=== PATIENT | female | born 1950 | race Caucasian/White ===

== ENCOUNTER 2024-08-30 19:49 | Inpatient (IN) | payer OTHER ==
[2024-08-30 20:49] LABS: Absolute Lymphocytes (CBC) 0.3 K/uL (0.7-4.9); Absolute Monocytes 0.5 K/uL (0.1-1.3); Absolute Neutrophil 1.3 K/uL (1.8-8.0); Basophils % 0.4 % (0-1.3); Hematocrit 33.3 % (36.0-45.0); Hemoglobin 11.6 g/dL (12.0-15.0); Lymphocytes % 14.4 % (15.3-44.8); MCH 33.4 pg (27.0-35.0); MCHC 34.8 g/dL (32.0-36.0); Monocytes % 22.3 % (3.3-12.3); Neutrophils % 62.9 % (41.7-73.7); Nucleated Red Blood Cells % 0.2 % (0-0); Platelets 96 thou/uL (152-406); RBC Red Blood Cell Count 3.47 M/uL (3.86-4.86)
[2024-08-30 20:54] LABS: PT Prothrombin Time 15.6 SECONDS (10-13.0); PTT, Activated Partial Thromb 27.7 SECONDS (27.2-37.4); Protime INR 1.39
[2024-08-30] MEDS ORDERED: ACETAMINOPHEN 325 MG TABLET ONE (20:56)
[2024-08-30] MEDS ORDERED: ASPIRIN 81 MG CHEWABLE TABLET ONE (20:56)
[2024-08-30] MEDS ORDERED: ONDANSETRON 4 MG/2 ML VIAL ONE (20:56)
[2024-08-30] MEDS ORDERED: HYDROMORPHONE HCL 0.5 MG/0.5 ML INJ ONE ×2 (20:56→23:24)
[2024-08-30] MEDS ORDERED: VANCOMYCIN 1 GM/VIAL ONE (20:56)
[2024-08-30] MEDS ORDERED: NA CHLORIDE 0.9% 250 ML ONE (20:57)
[2024-08-30] MEDS ORDERED: NA CHLORIDE 0.9% 500 ML ONE (20:57)
[2024-08-30] MEDS ORDERED: CEFEPIME 2 GM VIAL ONE (20:57)
[2024-08-30] MEDS ORDERED: FAMOTIDINE 20 MG/2 ML VIAL IV ONE (20:57)
[2024-08-30] MEDS ORDERED: NA CHLORIDE 0.9% 100 ML ONE (20:57)
[2024-08-30] MEDS ORDERED: NA CHLORIDE 0.9% 1,000 ML ONE (20:58)
[2024-08-30 21:02] LABS: AST/SGOT 12 U/L (15-37); Albumin 2.3 g/dL (3.4-5.0); Albumin/Globulin Ratio 0.5 (1.1-1.8); Alkaline Phosphatase 125 U/L (45-117); Bilirubin Direct 0.2 mg/dL (0-0.2); Bilirubin Indirect, Calculated 0.2 mg/dL (0.2-0.8); Bilirubin Total 0.4 mg/dL (0.2-1.0); Globulin 4.2 g/dL (2.3-3.5); Magnesium 1.5 mg/dL (1.6-2.4); NT PRO-BNP 596 pg/mL (<125); Protein, Total 6.5 g/dL (6.4-8.2)
--- NOTE | 2024-08-30 21:02 | RAD REPORT ---
EXAMINATION: Head Brain Wo Cont CLINICAL INDICATION: Female, 74 years old.MENTAL STATUS CHANGE TECHNIQUE: Axial CT images from the skull base to the vertex without intravenous contrast. Coronal an d sagittal reformatted images were created from the data set. One or more of the following dose reduction techniques were used: Automated exposure control, adjustment of the mA and/or kV according to patient size, and/or iterative reconstruction. Unless otherwise specified, incidental findings do not require dedicated imaging follow-up. [id number]. COMPARISON: No prior exam. FINDINGS: INTRACRANIAL: No acute intracranial hemorrhage. No hydrocephalus. No mass effect or midline shift. Mi ld chronic small vessel ischemic changes.Mild cerebral atrophy. VASCULATURE: No visualized abnormalities in the arteries or dural venous sinuses. SCALP/SKULL: No calvarial fracture identified. No acute soft tissue abnormality. SINUSES: The visualized paranasal sinuses are mostly clear. No significant mastoid fluid. IMPRESSION: No acute intracranial abnormality.
[2024-08-30 21:03] LABS: Anion Gap 10.5 mEq/L (5.0-15.0); Potassium 3.5 mEq/L (3.5-5.1); Troponin High Sensitivity 5.6 pg/mL (<58.9)
[2024-08-30 21:07] LABS: ALT/SGPT < 14 U/L (13-56)
--- NOTE | 2024-08-30 21:14 | RAD REPORT ---
EXAM: Chest Abd Pelvis Wo Con CLINICAL INDICATION: Female, 74 years old Abdominal distention;Cough TECHNIQUE: CT chest, abdomen and pelvis was performed, without IV contrast, as per department protoco l. Axial, sagittal and coronal reconstructions were obtained. One or more of the following dose reduction techniques were used: Automated exposure control, adjustment of the mA and/or kV according to the patient size, and/or iterative reconstruction. Unless otherwise specified, incidental findings do not require dedicated imaging follow-up. [id number]. COMPARISON: No prior exam. FINDINGS: The lack of intravenous contrast limits the sensitivity of this exam for evaluation of solid visceral organs, vascular structures, and retroperitoneum. ---THORAX--- LOWER NECK AND CHEST WALL: Right upper chest wall Port-A-Cath. LUNGS AND AIRWAYS: Emphysema.No dominant or clearly suspicious nodule identified. PLEURA: No pleural effusion. No pneumothorax. MEDIASTINUM AND LYMPH NODES: No mediastinal mass or fluid collection. Normal size mediastinal, hilar, and axillary lymph nodes. Diffuse esophageal wall thickening. THORACIC AORTA: No thoracic aortic aneurysm. Atherosclerotic changes are present. PULMONARY ARTERIES: Caliber is within normal limits. Unable to evaluate for pulmonary emboli due to e ither protocol or lack of contrast. HEART: Normal heart size. Moderate coronary artery calcifications.No significant pericardial effusion . ---ABDOMEN/PELVIS--- UPPER GI: No significant abnormality. LIVER: Pneumobilia. No focal mass within the limitations of noncontrast CT. GALLBLADDER/BILE DUCTS: Common bile duct stent.? PANCREAS: No mass, ductal dilation, or nasir-pancreatic fluid. SPLEEN: Unremarkable. ADRENALS: No adrenal masses. KIDNEYS AND URETERS: No hydronephrosis.Limited evaluation for renal lesions in the absence of IV cont rast.Nonobstructing renal calculi.No ureteral calculi. ABDOMINAL AORTA AND OTHER VESSELS: Moderate atherosclerotic changes without aortic aneurysm. PERITONEUM: No abnormal free fluid. No free air. LYMPH NODES: No pathologic lymphadenopathy. ABDOMINAL WALL: Unremarkable SMALL BOWEL/COLON: Small bowel has normal course and caliber. No colonic wall thickening or pericolon ic inflammatory changes.Normal appendix. URINARY BLADDER: Underdistended but grossly unremarkable. REPRODUCTIVE ORGANS: No pathologic process. ---COMBINED--- MUSCULOSKELETAL: Multilevel degenerative changes in the spine. No acute fracture. ADDITIONAL FINDINGS: None. IMPRESSION: No acute findings within the chest, abdomen, or pelvis. Evaluation of the abdomen and pelvis limited due to lack of IV contrast and lack of intra-abdominal fat. Incidental findings as noted above,
--- NOTE | 2024-08-30 21:15 | RAD REPORT ---
EXAM: Chest Single View HISTORY: 74 years Female COUGH COMPARISON: None. FINDINGS: LUNGS/PLEURA: The lungs are clear. No pleural effusions or pneumothorax. No pulmonary edema. CARDIAC/MEDIASTINUM: The cardiac silhouette is within normal limits. UPPER ABDOMEN: No significant abnormality. BONES: No acute abnormality. LINES/TUBES/OTHER: Right IJ approach Port-A-Cath. IMPRESSION: No evidence of acute cardiopulmonary disease.
[2024-08-30 21:17] LABS: Lipase 13 U/L (13-75)
[2024-08-30 21:37] LABS: Influenza A Ag Negative; Influenza B Ag Negative; SARS-CoV-2 Antigen Rapid Res Negative (Negative)
[2024-08-30] MEDS ORDERED: IBUPROFEN 200 MG TAB PO ONE (21:49)
[2024-08-30] MEDS ORDERED: IBUPROFEN 400 MG TAB ONE (21:49)
[2024-08-30 21:58] LABS: Band Neutrophils 20 % (0-1); Differential Total Cells Count 100; Lymphocytes 18 % (15-42); Monocytes 6 % (0-10); Reactive Lymphocytes 11 %; Segmented Neutrophils 45 % (40-80)
[2024-08-30 21:59] LABS: Blood Morphology Comment NOTED (NOT SEEN); Platelet Estimate DECR
[2024-08-30 22:23] LABS: Specific Gravity 1.013 (1.005-1.030); Sqamous Epithelial None Seen /HPF (None Seen); Urine Bacteria 20-50 /HPF (<20); Urine Bilirubin NEGATIVE (Negative); Urine Blood 1+ (Negative); Urine Clarity Extremely Turbid (Clear); Urine Color Yellow (Yellow); Urine Crystals Unidentified Few /HPF (None Seen); Urine Glucose NEGATIVE (Negative); Urine Ketones 1+ (Negative); Urine Micro Reflex YN NO BILL MICROSCOPIC; Urine Mucus Slight /HPF (None Seen); Urine Nitrite 2+ (Negative); Urine Protein 1+ (Negative); Urine RBC <5 /HPF (None Seen); Urine Urobilinogen Normal (Normal); Urine WBC >50 /HPF (<5); Urine WBC Clump Rare /HPF (None Seen)
--- NOTE | 2024-08-30 22:55 | EDPHYS ---
Physician Documentation [facility] Name: Heide Carty Age: 74 yrs Sex: Female : 1950 Arrival Date: 08/30/2024 Time: 19:49 Bed 6 Private MD: ED Physician Kartik Gilliam HPI: 08/30 20:05 This 74 yrs old Female presents to ER via EMS with complaints of Altered sp4 Mental Status. 20:28 74-year-old female presents with EMS for acute generalized weakness associated with sp4 fever reported some symptoms of a stroke including a right sided weakness.. 23:15 Patient has history of stage I pancreatic cancer that is being managed at [facility]. Last chemotherapy with gemcitabine on Wednesday08/23/2024. Last WBC count 4.8 on 08/23/2024. Patient's home medications include oxycodone 5 mg p.o. as needed pain, Protonix 20 mg daily, atorvastatin 40 mg daily, Zofran 4 mg as needed nausea, hydroxyzine 25 mg as needed anxiety, trazodone 50 mg as needed bedtime. Patient has developed acute generalized weakness at 5 PM today there was some concern for the stroke and right-sided weakness. NIH scale on presentation is 0.. - Immunization history:: Adult Immunizations up to date. - Infectious Disease History:: Denies. - Social history:: Smoking status: unknown. - Family history:: not pertinent. ROS: 23:16 Constitutional: Positive fever, positive generalized weakness, positive altered mental sp4 status, 23:16 All other systems are negative, Exam: 23:21 Constitutional: Patient is frail cachectic appearing female, acutely febrile 103.1 sp4 generalized weakness, no focal deficits. Able to state her name and date of . Head/Face: Normocephalic, atraumatic. Eyes: Pupils equal round and reactive to light, extra-ocular motions intact. Lids and lashes normal. Conjunctiva and sclera are not injected. Cornea within normal limits. Periorbital areas with no swelling, redness, or edema. ENT: Nares patent. No nasal discharge, no septal abnormalities noted. Tympanic membranes are normal and external auditory canals are clear. Oropharynx with no redness, swelling, or masses, exudates, or evidence of obstruction, uvula midline. Mucous membranes moist. Neck: Trachea midline, no thyromegaly or masses palpated, and no cervical lymphadenopathy. Supple, full range of motion without nuchal rigidity, or vertebral point tenderness. Chest/axilla: Normal chest wall appearance and motion. Nontender with no deformity. No lesions are appreciated. Cardiovascular: Regular rate and rhythm with a normal S1 and S2. No gallops, murmurs, or rubs. Normal PMI, no JVD. No pulse deficits. Respiratory: Lungs have equal breath sounds bilaterally, clear to auscultation and percussion. No rales, rhonchi or wheezes noted. No increased work of breathing, no retractions or nasal flaring. Abdomen/GI: Soft, with normal bowel sounds. No distension or tympany. No guarding or rebound. No evidence of tenderness throughout. Back: No spinal tenderness. No costovertebral tenderness. Skin: Warm, dry with normal turgor. Normal color with no rashes, no lesions, and no evidence of cellulitis. MS/ Extremity: Pulses equal, no cyanosis. Neurovascular intact. Full, normal range of motion. Neuro: Awake and alert, GCS 15, oriented to person, Cranial nerves II-XII grossly intact. Motor strength 5/5 in all extremities. Sensory grossly intact. 23:21 ECG was reviewed by the Attending Physician. EKG 2003 normal sinus rhythm rate 90 otherwise normal EKG. Vital Signs: 19:51 BP 134 / 61; Pulse 90; Resp 18; Temp 100.1(O); Pulse Ox 98% on R/A; Weight 47.17 kg; kd3 21:31 BP 109 / 54; Pulse 81; Resp 18; Pulse Ox 96% on R/A; kd3 23:34 Temp 98.2(O); kd3 05/08 02:03 BP 81 / 42; Pulse 58; Resp 18; Pulse Ox 98% on R/A; kd3 03:16 BP 97 / 52; Pulse 61; Resp 18; Pulse Ox 100% on R/A; kd3 04:07 BP 96 / 54; Pulse 63; Resp 16; Pulse Ox 99% on R/A; kd3 [place] Coma Score: 08/30 23:21 Eye Response: spontaneous(4). Motor Response: obeys commands(6). Verbal Response: sp4 oriented(5). Total: 15. MDM: 19:57 Medical Screening Exam initiated true 22:55 ED course: Sepsis reevaluation completed, septic fluid bolus administered. Patient sp4 stable for admission. Will discuss patient with [facility] at family request. [facility] has declined admission secondary to the fact that sepsis can be managed here. Patient will be admitted here with IV antibiotics and further care pertaining to her acute UTI. 23:25 Differential Diagnosis: CVA, electrolyte abnormality, overdose, pneumonia, seizure, sp4 sepsis, TIA, UTI, volume depletion. Data reviewed: vital signs, nurses notes, EMS record, lab test result(s), EKG, radiologic studies. Consideration of Admission/Observation Patient was admitted/placed on observation. Escalation of care including admission/observation considered. Management of patient was discussed with the following: Hospitalist: Admit Team . 23:33 ED course: EXAM: Chest Abd Pelvis Wo Con CLINICAL INDICATION: Female, 74 years old sp4 Abdominal distention;Cough TECHNIQUE: CT chest, abdomen and pelvis was performed, without IV contrast, as per department protocol. Axial, sagittal and coronal reconstructions were obtained. One or more of the following dose reduction techniques were used: Automated exposure control, adjustment of the mA and/or kV according to the patient size, and/or iterative reconstruction. Unless otherwise specified, incidental findings do not require dedicated imaging follow-up. [id number]. COMPARISON: No prior exam. FINDINGS: The lack of intravenous contrast limits the sensitivity of this exam for evaluation of solid visceral organs, vascular structures, and retroperitoneum. ---THORAX--- LOWER NECK AND CHEST WALL: Right upper chest wall Port-A-Cath. LUNGS AND AIRWAYS: Emphysema.No dominant or clearly suspicious nodule identified. PLEURA: No pleural effusion. No pneumothorax. MEDIASTINUM AND LYMPH NODES: No mediastinal mass or fluid collection. Normal size mediastinal, hilar, and axillary lymph nodes. Diffuse esophageal wall thickening. THORACIC AORTA: No thoracic aortic aneurysm. Atherosclerotic changes are present. PULMONARYARTERIES: Caliber is within normal limits. Unable to evaluate for pulmonary emboli due to either protocol or lack of contrast. HEART: Normal heart size. Moderate coronary artery calcifications.No significant pericardial effusion. ---ABDOMEN/PELVIS--- UPPER GI: No significant abnormality. LIVER: Pneumobilia. No focal mass within the limitations of noncontrast CT. GALLBLADDER/BILE DUCTS: Common bile duct stent.? PANCREAS: No mass, ductal dilation, or nasir-pancreatic fluid. SPLEEN: Unremarkable. ADRENALS: No adrenal masses. KIDNEYS AND URETERS: No hydronephrosis.Limited evaluation for renal lesions in the absence of IV ABDOMINAL AORTA AND OTHER VESSELS: Moderate atherosclerotic changes without aortic aneurysm. PERITONEUM: No abnormal free fluid. No free air. LYMPH NODES: No pathologic lymphadenopathy. ABDOMINAL WALL: Unremarkable SMALL BOWEL/COLON: Small bowel has normal course and caliber. No colonic wall thickening or pericolonic inflammatory changes.Normal appendix. URINARYBLADDER: Underdistended but grossly unremarkable. REPRODUCTIVE ORGANS: No pathologic process. ---COMBINED--- MUSCULOSKELETAL: Multilevel degenerative changes in the spine. No acute fracture. ADDITIONAL FINDINGS: None. IMPRESSION: No acute findings within the chest, abdomen, or pelvis. Evaluation of the abdomen and pelvis limited due to lack of IV contrast and lack of intra-abdominal fat. Incidental findings as noted above, . ED course: EXAMINATION: Head Brain Wo Cont CLINICAL INDICATION: Female, 74 years old.MENTAL STATUS CHANGE TECHNIQUE: Axial CT images from the skull base to the vertex without intravenous contrast. Coronal and sagittal reformatted images were created from the data set. One or more of the following dose reduction techniques were used: Automated exposure control, adjustment of the mA and/or kV according to patient size, and/or iterative reconstruction. Unless otherwise specified, incidental findings do not require dedicated imaging follow-up. [id number]. COMPARISON: No prior exam. FINDINGS: INTRACRANIAL: No acute intracranial hemorrhage. No hydrocephalus. No mass effect or midline shift. Mild chronic small vessel ischemic changes.Mild cerebral atrophy. VASCULATURE: No visualized abnormalities in the arteries or dural venous sinuses. SCALP/SKULL: No calvarial fracture identified. No acute soft tissue abnormality. SINUSES: The visualized paranasal sinuses are mostly clear. No significant mastoid fluid. IMPRESSION: No acute intracranial abnormality. . 08/30 19:58 Order name: Basic Metabolic Panel; Complete Time: 21:47 vc1 08/30 19:58 Order name: CBC with Diff; Complete Time: 22:08 1 08/30 19:58 Order name: High Sensitivity Troponin; Complete Time: 21:47 1 08/30 19:58 Order name: Protime (+inr); Complete Time: 21:03 [facility] 08/30 19:58 Order name: Ptt, Activated; Complete Time: 21:03 [facility] 08/30 19:58 Order name: UA W/ Microscopic; Complete Time: 22:37 [facility] 08/30 20:01 Order name: LFT's; Complete Time: 21:47 [facility] 08/30 20:01 Order name: Magnesium; Complete Time: 21:47 [facility] 08/30 20:01 Order name: NT PRO-BNP; Complete Time: 21:47 [facility] 08/30 20:01 Order name: Blood Culture Adult (2) [facility] 08/30 20:01 Order name: Lactate w/ 2H reflex if indic.; Complete Time: 21:03 [facility] 08/30 20:01 Order name: COVID-19 Ag + Flu A+B Ag; Complete Time: 21:47 [facility] 08/30 20:54 Order name: Manual Differential; Complete Time: 22:08 EDWA 08/30 21:05 Order name: C-Reactive Protein; Complete Time: 21:47 EDWA 08/30 21:14 Order name: Lipase; Complete Time: 21:47 EDMS 08/31 01:15 Order name: Basic Metabolic Panel EDMS 08/31 01:15 Order name: Basic Metabolic Panel EDMS 08/31 01:15 Order name: CBC with Automated Diff EDMS 08/31 01:15 Order name: CBC with Automated Diff EDMS 08/30 20:01 Order name: XRAY Chest (1 view); Complete Time: 21:47 [facility] 08/30 20:01 Order name: CT Head Brain wo Cont; Complete Time: 21:03 [facility] 08/30 20:01 Order name: CT Chest Abdomen Pelvis W/O Contrast; Complete Time: 21:47 [facility] 08/30 19:58 Order name: EKG; Complete Time: 19:59 [facility] 08/31 01:15 Order name: EKG Electrocardiogram EDMS 08/31 01:15 Order name: EKG Electrocardiogram EDMS 08/30 19:58 Order name: Accucheck; Complete Time: 21:30 [facility] 08/30 19:58 Order name: Cardiac monitoring; Complete Time: 20:08 [facility] 08/30 19:58 Order name: EKG - Nurse/Tech; Complete Time: 20:08 [facility] 08/30 19:58 Order name: IV Saline Lock; Complete Time: 20:52 [facility] 08/30 19:58 Order name: Labs collected and sent; Complete Time: 20:52 vc1 08/30 19:58 Order name: NPO; Complete Time: 20:08 vc1 08/30 19:58 Order name: O2 Per Protocol; Complete Time: 20:52 vc1 08/30 19:58 Order name: O2 Sat Monitoring; Complete Time: 20:51 vc1 08/30 19:58 Order name: Stroke Swallow Screen; Complete Time: 21:30 vc1 EC:03 Rate is 90 beats/min. Rhythm is regular, Normal Sinus Rhythm. QRS [place] is Normal. CA sp4 interval is normal. QRS interval is normal. QT interval is normal. No Q waves. T waves are Normal. No ST changes noted. Clinical impression: No evidence of ischemia. Interpreted by me. Reviewed by me. Administered Medications: 20:41 CANCELLED (Physician Discretion): rocephin1 grams IV at per protocol once; Given slow sp4 IV push per pharmacy instructions 21:28 Drug: Cefepime IVPB 2 grams IVPB at 200 ml/hr once over 30 mins; (mix in NS 100 mL) kd3 Route: IVPB; Rate: 200 ml/hr; Infused Over: 30 mins; Site: right upper arm; 21:29 Drug: Aspirin PO Chewable Tablet 324 mg PO once; 81 mg tablets x 4 Route: PO; kd3 21:29 Drug: NS 0.9% IV (30 ml/kg) 30 ml/kg IV at bolus once; Sepsis Protocol; to be given as kd3 a bolus over 90 minutes Route: IV; Rate: bolus; Site: left upper arm; 21:29 Drug: Famotidine IVP 20 mg IVP once; dilute with 10 mL 0.9% NaCl; give over 2 minutes kd3 Route: IVP; Site: right upper arm; 21:29 Drug: Acetaminophen PO 650 mg PO once Route: PO; kd3 21:29 Drug: HYDROmorphone IVP 0.5 mg IVP once Route: IVP; Site: right upper arm; kd3 21:29 Drug: Ondansetron IVP 4 mg IVP once; over 2 minutes Route: IVP; Site: right upper arm; kd3 21:55 Drug: Ibuprofen PO 600 mg PO once Route: PO; kd3 21:56 Drug: vancoMYCIN IVPB 1 grams IVPB once over 2 hrs Route: IVPB; Infused Over: 2 hrs; kd3 Site: right upper arm; 23:26 Drug: HYDROmorphone IVP 0.5 mg IVP once Route: IVP; Site: right upper arm; kd3 08/31 01:58 Drug: NS 0.9% IV 500 ml 500 ml IV at 1 bolus once; to be given as a bolus over 30 kd3 minutes Volume: 500 ml; Route: IV; Rate: 1 bolus; Site: right upper arm; 01:58 Drug: midodrine 2.5 mg PO once Route: PO; kd3 01:59 Drug: Albumin IVPB 25 grams 100 ml IVPB once; (Note: Albumin 25% concentration) Volume: kd3 100 ml; Route: IVPB; Site: right upper arm; 03:15 Drug: Albumin IVPB 25 grams 100 ml IVPB once; (Note: Albumin 25% concentration) Volume: kd3 100 ml; Route: IVPB; Site: right upper arm; 03:15 Drug: NS 0.9% IV 500 ml 500 ml IV at 1 bolus once; to be given as a bolus over 30 kd3 minutes Volume: 500 ml; Route: IV; Rate: 1 bolus; Site: right upper arm; 03:15 Drug: midodrine 2.5 mg PO once Route: PO; kd3 Disposition: 08/30 20:28 Critical Care:. sp4 Disposition Summary: 08/30/24 22:54 Hospitalization Ordered Notes: Hospitalization Status: Inpatient Admission sp4 Provider: Omar Conway Location: Telemetry/[facility] (Inpatient) sp4 Condition: Fair sp4 Problem: new sp4 Symptoms: have improved sp4 Bed/Room Type: Standard sp4 Room Assignment: [facility](08/31/24 02:24) Diagnosis - Severe sepsis without septic shock sp4 - Neutropenia, unspecified sp4 - Pyelonephritis acute sp4 - Neutropenic fever sp4 Forms: - Medication Reconciliation Form sp4 - SBAR form sp4 - Leadership Thank You Letter sp4 Critical care time excluding procedures: 20:28 Critical care time: Bedside Care: 36 minutes, Consultation: 12 minutes, Family sp4 Intervention: 12 minutes. Total time: 60 minutes Signatures: Dispatcher [employer] Esemr Luis RN RN kl Anderson, Corey, MD MD cha Doucette, Kyli, RN RN kd3 Collette Coles RN RN vc1 Kartik Gilliam MD MD sp4 Corrections: (The following items were deleted from the chart) 19:59 19:59 BASIC METABOLIC PANEL+C.LAB.BRZ ordered. EDMS EDMS 19:59 19:59 CBC+H.LAB.BRZ ordered. EDMS EDMS 19:59 19:59 Troponin High Sensitivity+C.LAB.BRZ ordered. EDMS EDMS 19:59 19:59 PROTIME (+INR)+COAG.LAB.BRZ ordered. EDMS EDMS 19:59 19:59 PTT, ACTIVATED+COAG.LAB.BRZ ordered. EDMS EDMS 19:59 19:59 UA W/ Microscopic+U.LAB.BRZ ordered. EDMS EDMS 20:01 20:01 HEPATIC FUNCTION+C.LAB.BRZ ordered. EDMS EDMS 20:01 20:01 MAGNESIUM+C.LAB.BRZ ordered. EDMS EDMS 20:01 20:01 PROBNP+C.LAB.BRZ ordered. EDMS EDMS 20:01 20:01 BLOOD CULTURE*+BA.LAB.BRZ ordered. EDMS EDMS 20:01 20:01 LACTATE+C.LAB.BRZ ordered. EDMS EDMS 20:01 20:01 COVID-19 Ag + Flu A+B Ag+I.LAB.BRZ ordered. EDMS EDMS 20:01 20:01 Chest Single View+RAD.RAD.BRZ ordered. EDMS EDMS 20:02 20:02 Head Brain Wo Cont+CT.RAD.BRZ ordered. EDMS EDMS 20:02 20:02 Chest Abdomen Pelvis Wo Con+CT.RAD.BRZ ordered. EDMS EDMS 20:41 20:01 Rocephin IV 1 grams IV at per protocol once; Given slow IV push per pharmacy sp4 instructions ordered. true 21:04 20:27 C-REACTIVE PROTEIN+C.LAB.BRZ ordered. EDMS EDMS 21:19 21:05 LIPASE+C.LAB.BRZ ordered. EDMS EDMS 08/31 02:24 08/30 22:54 sp4 [address]
--- NOTE | 2024-08-30 22:55 | ER ---
Nurse's Notes [facility] Name: Heide Carty Age: 74 yrs Sex: Female : 1950 Arrival Date: 08/30/2024 Time: 19:49 Bed 6 Private MD: Diagnosis: Severe sepsis without septic shock;Neutropenia, unspecified;Pyelonephritis acute;Neutropenic fever Presentation: 08/30 19:51 Chief complaint: EMS states: Family called for altered mental status that started this kd3 morning around 0300. Pt was weaker than normal and unable to walk on her own. The patient's daughter and grand daughter are at the bedside and report that she seemed to improve throughout the day but then steadily declined starting around 5pm today and is now not responding correctly. pt VSS. Pt is receiving chemo for pancreatic cancer. Coronavirus screen: unknown. Ebola Screen: No symptoms or risks identified at this time. Initial Sepsis Screen: Does the patient meet any 2 criteria? No. Patient's initial sepsis screen is negative. Does the patient have a suspected source of infection? No. Patient's initial sepsis screen is negative. Risk Assessment: Do you want to hurt yourself or someone else? Patient reports no desire to harm self or others. Onset of symptoms was August 30, 2024. 19:51 Method Of Arrival: EMS: [facility] kd3 19:51 Acuity: SOHAM 3 kd3 Triage Assessment: 19:51 General: Appears in no apparent distress. Behavior is calm, quiet. Pain: Denies pain. kd3 Neuro: Level of Consciousness is awake, confused, Oriented to person. - Immunization history:: Adult Immunizations up to date. - Infectious Disease History:: Denies. - Social history:: Smoking status: unknown. - Family history:: not pertinent. Screenin:30 July Swallow Protocol Exclusion Criteria: Exclusion Criteria Result: Proceed Brief kd3 Cognitive Screen What is your name? Normal, Where are you right now? Normal, What year is it? Abnormal Oral Mechanism Examination Oral Mechanism Result: Normal. 3 oz Water Swallow Challenge: Pt able to drink all water without stopping, coughing, choking or throat clearing: Yes Result: PASS Notified: Kartik Gilliam MD. 23:31 [facility] ED Fall Risk Assessment (Adult) History of falling in the last 3 months, kd3 including since admission No falls in past 3 months (0 pts) Confusion or Disorientation No (0 pts) Intoxicated or Sedated No (0 pts) Impaired Gait No (0 pts) Mobility Assist Device Used No (0 pt) Altered Elimination No (0 pt) Score/Fall Risk Level 0 - 2 = Low Risk Oriented to surroundings. Abuse screen: Denies threats or abuse. Denies injuries from another. Nutritional screening: No deficits noted. Tuberculosis screening: No symptoms or risk factors identified. Assessment: 23:30 General: Pt has improved mental status. VSS. Pt is alert and oriented x 4.. Pt has kd3 taken some oral fluids and food.. . Neuro: Level of Consciousness is awake, alert, obeys commands, Oriented to person, place, time, situation. Cardiovascular: Patient's skin is warm and dry. Respiratory: Airway is patent Trachea midline Respiratory effort is even, unlabored, Respiratory pattern is regular, symmetrical. Vital Signs: 19:51 BP 134 / 61; Pulse 90; Resp 18; Temp 100.1(O); Pulse Ox 98% on R/A; Weight 47.17 kg; kd3 21:31 BP 109 / 54; Pulse 81; Resp 18; Pulse Ox 96% on R/A; kd3 23:34 Temp 98.2(O); kd3 05/08 02:03 BP 81 / 42; Pulse 58; Resp 18; Pulse Ox 98% on R/A; kd3 03:16 BP 97 / 52; Pulse 61; Resp 18; Pulse Ox 100% on R/A; kd3 04:07 BP 96 / 54; Pulse 63; Resp 16; Pulse Ox 99% on R/A; kd3 Mimi Coma Score: 08/30 23:21 Eye Response: spontaneous(4). Motor Response: obeys commands(6). Verbal Response: sp4 oriented(5). Total: 15. ED Course: 19:51 Patient arrived in ED. kd3 19:51 Arm band placed on. kd3 19:55 Triage completed. kd3 19:57 Greg Mae MD is Attending Physician. [facility] 20:04 Attending Physician role handed off by Greg Mae MD sp4 20:04 Kartik Gilliam MD is Attending Physician. sp4 20:07 Samira Guerrero, SHAKIRA is Primary Nurse. kd3 20:50 CT Head Brain wo Cont In Process Unspecified. EDMS 20:50 CT Chest Abdomen Pelvis W/O Contrast In Process Unspecified. EDMS 20:51 Ptt, Activated Sent. kd3 20:51 Protime (+inr) Sent. kd3 20:51 High Sensitivity Troponin Sent. kd3 20:51 CBC with Diff Sent. kd3 20:51 Basic Metabolic Panel Sent. kd3 20:52 NT PRO-BNP Sent. kd3 20:52 Magnesium Sent. kd3 20:52 LFT's Sent. kd3 20:52 Lactate w/ 2H reflex if indic. Sent. kd3 20:52 Blood Culture Adult (2) Sent. kd3 21:14 XRAY Chest (1 view) In Process Unspecified. EDMS 21:30 COVID-19 Ag + Flu A+B Ag Sent. kd3 22:04 called MD Mae [phone]. sp 22:54 Omar Conway MD is Hospitalizing Provider. sp4 23:32 Patient has correct armband on for positive identification. kd3 08/31 03:17 No provider procedures requiring assistance completed. Patient admitted, IV remains in kd3 place. 04:07 Provided Education on: admission order . kd3 Administered Medications: 08/30 20:41 CANCELLED (Physician Discretion): rocephin1 grams IV at per protocol once; Given slow sp4 IV push per pharmacy instructions 21:28 Drug: Cefepime IVPB 2 grams IVPB at 200 ml/hr once over 30 mins; (mix in NS 100 mL) kd3 Route: IVPB; Rate: 200 ml/hr; Infused Over: 30 mins; Site: right upper arm; 21:29 Drug: Aspirin PO Chewable Tablet 324 mg PO once; 81 mg tablets x 4 Route: PO; kd3 21:29 Drug: NS 0.9% IV (30 ml/kg) 30 ml/kg IV at bolus once; Sepsis Protocol; to be given as kd3 a bolus over 90 minutes Route: IV; Rate: bolus; Site: left upper arm; 21:29 Drug: Famotidine IVP 20 mg IVP once; dilute with 10 mL 0.9% NaCl; give over 2 minutes kd3 Route: IVP; Site: right upper arm; 21:29 Drug: Acetaminophen PO 650 mg PO once Route: PO; kd3 21:29 Drug: HYDROmorphone IVP 0.5 mg IVP once Route: IVP; Site: right upper arm; kd3 21:29 Drug: Ondansetron IVP 4 mg IVP once; over 2 minutes Route: IVP; Site: right upper arm; kd3 21:55 Drug: Ibuprofen PO 600 mg PO once Route: PO; kd3 21:56 Drug: vancoMYCIN IVPB 1 grams IVPB once over 2 hrs Route: IVPB; Infused Over: 2 hrs; kd3 Site: right upper arm; 23:26 Drug: HYDROmorphone IVP 0.5 mg IVP once Route: IVP; Site: right upper arm; kd3 08 01:58 Drug: NS 0.9% IV 500 ml 500 ml IV at 1 bolus once; to be given as a bolus over 30 kd3 minutes Volume: 500 ml; Route: IV; Rate: 1 bolus; Site: right upper arm; 01:58 Drug: midodrine 2.5 mg PO once Route: PO; kd3 01:59 Drug: Albumin IVPB 25 grams 100 ml IVPB once; (Note: Albumin 25% concentration) Volume: kd3 100 ml; Route: IVPB; Site: right upper arm; 03:15 Drug: Albumin IVPB 25 grams 100 ml IVPB once; (Note: Albumin 25% concentration) Volume: kd3 100 ml; Route: IVPB; Site: right upper arm; 03:15 Drug: NS 0.9% IV 500 ml 500 ml IV at 1 bolus once; to be given as a bolus over 30 kd3 minutes Volume: 500 ml; Route: IV; Rate: 1 bolus; Site: right upper arm; 03:15 Drug: midodrine 2.5 mg PO once Route: PO; kd3 Medication: 08/30 23:34 VIS not applicable for this client. kd3 Outcome: 22:54 Decision to Hospitalize by Provider. sp4 08/31 04:07 Admitted to Med/surg kd3 Condition: stable Discharge instructions given to patient, Instructed on the need for admit, Demonstrated understanding of instructions, 04:08 Patient left the ED. kd3 Signatures: Dispatcher [employer] EDGreg Aguiar MD MD cha Pinkerton, Shawna sp Doucette, Kyli, RN RN kd3 Potepalov, Kartik, MD MD sp4
[2024-08-31] MEDS ORDERED: ONDANSETRON 4 MG/2 ML VIAL IV PRN (01:06)
[2024-08-31] MEDS ORDERED: NA CHLORIDE 0.9% 500 ML ONE ×2 (01:21→03:03)
[2024-08-31] MEDS ORDERED: MIDODRINE HCL 5 MG TABLET ONE ×2 (01:21→03:02)
[2024-08-31] MEDS ORDERED: ALBUMIN HUMAN 25% 100 ML IV ONE (01:22)
[2024-08-31] MEDS ORDERED: ALBUMIN HUMAN 25% 50 ML IV ONE (03:03)
[2024-08-31] MEDS: ALBUMIN HUMAN 25% 50 ML IV ONE (03:08)
[2024-08-31] MEDS: NACHLORIDE 0.45% 1,000 ML IV SCH (05:15)
--- NOTE | 2024-08-31 06:57 | P.HP ---
Certification for Inpatient Patient admitted to: Inpatient With expected LOS: >2 Midnights Patient will require the following post-hospital care: None Practitioner: I am a practitioner with admitting privileges, knowledge of patient current condition, hospital course, and medical plan of care. Services: Services provided to patient in accordance with Admission requirements found in Title 42 Section 412.3 of the Code of Federal Regulations Patient History Date of Service: 08/31/24 Reason for admission: Sepsis due to UTI, generalized body weakness Allergies contrast Allergy (Uncoded 08/31/24 02:31) Itching/Hives/Rash Home medications list reviewed: Yes Home Medications: Atorvastatin Calcium 40 mg PO BEDTIME 08/31/24 Oxycodone HCl 5 mg PO BID* PRN 08/31/24 Pantoprazole [Protonix Tab] 25 mg PO DAILY 08/31/24 - Past Medical/Surgical History Has patient received pneumonia vaccine in the past: Yes Diabetic: No -: Pancreatic stent placement. -: Esophageal surgery. -: Tubal ligation. -: Right chest wall Port-A-Cath. - Family History Family History: Reviewed- Non-Contributory - Social History Smoking Status: Never smoker Smoking therapy provided: No Alcohol use: No CD- Drugs: No Caffeine use: Yes Place of Residence: Home Review of Systems 10-point ROS is otherwise unremarkable General: Fever Gastrointestinal: Nausea, Abdominal Pain Musculoskeletal: Back Pain Neurological: Weakness Physical Examination - Vital Signs Temperature: 97.5 F Blood Pressure: 96/54 Pulse: 63 Respirations: 16 Pulse Ox (%): 100 - Physical Exam General: Alert, Oriented x3, Cooperative HEENT: Atraumatic, Normocephalic, Mucous membr. moist/pink, Sclerae nonicteric Neck: Supple, Without JVD or thyroid abnormality Respiratory: Clear to auscultation bilaterally, Normal air movement Cardiovascular: Normal pulses, Regular rate/rhythm, Normal S1 S2, No gallops, No rubs, No murmurs Capillary refill: <2 Seconds Gastrointestinal: Normal bowel sounds, Tenderness Musculoskeletal: No clubbing, No swelling, No erythema Integumentary: No breakdown, No cyanosis Neurological: Normal speech, Normal tone, Cranial nerves 3-12 intact, Normal affect Lymphatics: No axilla or inguinal lymphadenopathy External genitalia: No lesions Rectal: Normal - Studies Laboratory Data (last 24 hrs) 08/30/24 08/30/24 08/30/24 21:05 20:28 20:28 WBC Hgb Hct Plt Count PT 15.6 H INR 1.39 APTT 27.7 Sodium Potassium BUN Creatinine Glucose Magnesium 1.5 L Total Bilirubin 0.4 AST 12 L ALT < 14 Alkaline Phosphatase 125 H Lipase Cancelled 13 08/30/24 08/30/24 20:28 20:28 WBC 2.00 L Hgb 11.6 L Hct 33.3 L Plt Count 96 L PT INR APTT Sodium 131 L Potassium 3.5 BUN 10 Creatinine 0.82 Glucose 118 H Magnesium Total Bilirubin AST ALT Alkaline Phosphatase Lipase Female Exam - Breasts Breasts: Normal configuration - Female Pelvic Cervix: No discharge Assessment and Plan - Plan Patient is a pleasant 74-year-old female with past medical history of pancreatic cancer that was diagnosed in January/2024 and currently receiving chemotherapy at this time, reports to the ER today brought in by her family due to generalized body weakness, disorientation, with a temp of 103.1. While in ER patient was afebrile, back to her baseline neuro status, alert and oriented x 3, able to communicate appropriately, follows all commands appropriate. Patient workup in the ER shows UTI. Patient denies any associated chest pain, shortness of breath, complaint of abdominal pain secondary to pancreatic cancer. When inquired from the patient if she remember what happened that she was brought to the ER, patient states she does not remember anything. According to report received from ER doctor, he states he tried calling [facility] for patient to be transferred over there since she is receiving chemotherapy, states he was told that patient does not need to be transferred because he has UTI and is not related to her cancer. (1) sepsis due to UTI. -Ceftriaxone 2 g IV daily. -IV 1/2 NS at 75ml/ hr. (2Chronic pancreatic cancer diagnosed January/2024, currently on chemotherapy in [facility]. -Morphine IV as needed every 4 hours. -Zofran 4 mg IV every 6 hours as needed. (3)Explained the entire treatment plan to the patient, solicit questions answered and voiced understanding. Discharge Plan: Home - Advance Directives Does patient have a Living Will: No Does patient have a Durable POA for Healthcare: No - Code Status/Comfort Care Code Status Assessed: Yes Code Status: Full Code
[2024-08-31 07:33] LABS: Anion Gap 9.5 mEq/L (5.0-15.0); Potassium 3.5 mEq/L (3.5-5.1)
[2024-08-31] MEDS: Ringers Lactate 1,000 ML IV ONE (08:16)
[2024-08-31] MEDS: ENOXAPARIN 40 MG/0.4 ML SQ SCH (08:18)
[2024-08-31] MEDS: PANTOPRAZOLE 40MG TABLET PO SCH (08:18)
[2024-08-31] MEDS: OXYCODONE HCL 5 MG TAB PO PRN (08:18)
[2024-08-31] MEDS: CEFTRIAXONE 2,000 MG in NA CHLORIDE 0.9% 100 ML IV SCH (08:19)
[2024-08-31] MEDS: Magnesium Sulfate 2gm IVPB 2 G/50 ML BAG IV ONE (08:19)
[2024-08-31] MEDS ORDERED: OXYCODONE *CR* 20 MG TAB PO SCH ×2 (09:00)
--- NOTE | 2024-08-31 11:39 | EKG ---
Test Date: 2024-08-30 Test Time: 20:03:10 Television [employer] Director: [place] MEASUREMENT RESULTS: Intervals: Rate: 90 NY: 132 QRSD: 64 QT: 348 QTc: 425 [place]: P: 77 [place]: 132 QRS: -14 T: 75 INTERPRETIVE STATEMENTS: Normal sinus rhythm Possible Left atrial enlargement Septal infarct, age undetermined Abnormal ECG No previous ECG available for comparison Electronically Signed On 08-31-24 11:38:30 CDT by Kaushik Maharaj
--- NOTE | 2024-08-31 12:14 | P.PN ---
Subjective Date of Service: 08/31/24 Chief Complaint: Sepsis due to UTI, generalized body weakness Subjective: No chest pain or shortness of breath. No nausea or vomiting. Has chronic abdominal pain from pancreatic cancer, now some pain in the bladder area. No obvious bleeding. Looks comfortable in the bed. Objective: General appearance: Alert and comfortable CVS: Normal S1 and S2 Lungs: Clear to auscultation bilaterally Abdomen: Soft, bowel sounds present, mild tenderness in the epigastric and suprapubic area Extremities: No lower extremity edema Physical Examination - Vital Signs Temperature: 97.5 F Blood Pressure: 106/46 Pulse: 64 Respirations: 18 Pulse Ox (%): 100 - Studies Laboratory Data (last 24 hrs) 08/30/24 08/30/24 08/30/24 21:05 20:28 20:28 WBC Hgb Hct Plt Count PT 15.6 H INR 1.39 APTT 27.7 Sodium Potassium BUN Creatinine Glucose Magnesium 1.5 L Total Bilirubin 0.4 AST 12 L ALT < 14 Alkaline Phosphatase 125 H Lipase Cancelled 13 08/30/24 08/30/24 20:28 20:28 WBC 2.00 L Hgb 11.6 L Hct 33.3 L Plt Count 96 L PT INR APTT Sodium 131 L Potassium 3.5 BUN 10 Creatinine 0.82 Glucose 118 H Magnesium Total Bilirubin AST ALT Alkaline Phosphatase Lipase Assessment And Plan - Plan (1) sepsis due to UTI. -Ceftriaxone IV - blood pressure was soft, given fluid bolus this morning, blood pressure improving after that, continue maintenance IV fluids - Unfortunately urine culture was not sent at admission, will repeat UA and send culture. 2. pancreatic cancer diagnosed January/2024, currently on chemotherapy in [facility]. - Supportive care for now, follow-up with [facility] next week. 3. Pancytopenia: Probably related to underlying cancer and chemotherapy, follow-up with oncology. 4. Hypomagnesemia: Replace and monitor. 5. Emphysema on CT scan: As needed inhalers for now. 6. Esophageal thickening on CT scan: Start PPI, follow-up with PCP. 7. Generalized weakness: Secondary to underlying UTI and pancreatic cancer, CT head negative. Plan discussed with the patient, answered all questions, discussed with nursing staff.
[2024-08-31] MEDS: POTASSIUM CL SA 10 MEQ TAB PO ONE (14:05)
[2024-08-31] MEDS: ACETAMINOPHEN 325 MG TABLET PO PRN (16:42)
[2024-08-31] MEDS: ATORVASTATIN 40 MG TAB PO SCH (19:58)
[2024-08-31] MEDS: ENSURE ENLIVE 237 ML CAN PO SCH (20:00)
[2024-09-01 04:44] LABS: Absolute Lymphocytes (CBC) 0.5 K/uL (0.7-4.9); Absolute Monocytes 0.6 K/uL (0.1-1.3); Absolute Neutrophil 1.8 K/uL (1.8-8.0); Basophils % 0.2 % (0-1.3); Eosinophils % 0.4 % (0-4.4); Hematocrit 27.2 % (36.0-45.0); Hemoglobin 9.4 g/dL (12.0-15.0); MCH 33.1 pg (27.0-35.0); MCHC 34.5 g/dL (32.0-36.0); MCV 95.7 fL (80-100); MPV 9.7 fL (7.6-11.3); Monocytes % 20.5 % (3.3-12.3); Neutrophils % 62.9 % (41.7-73.7); Nucleated Red Blood Cells % 0.4 % (0-0); Platelets 122 thou/uL (152-406); RBC Red Blood Cell Count 2.84 M/uL (3.86-4.86); Red Cell Distribution Width 12.9 % (12.1-15.2)
[2024-09-01 04:45] LABS: Anion Gap 6.6 mEq/L (5.0-15.0); Magnesium 1.9 mg/dL (1.6-2.4); Phosphorus 1.9 mg/dL (2.5-4.9); Potassium 3.6 mEq/L (3.5-5.1)
[2024-09-01] MEDS: POTASSIUM CL SA 10 MEQ TAB PO ONE (08:40)
[2024-09-01] MEDS: Ringers Lactate 1,000 ML IV ONE (08:48)
[2024-09-01] MEDS: Ringers Lactate 1,000 ML IV SCH (08:49)
[2024-09-01] MEDS: PIPER TAZO 3.375 GM in NA CHLORIDE 0.9% 100 ML IV SCH (08:50)
[2024-09-01] MEDS: Magnesium Sulfate 2gm IVPB 2 G/50 ML BAG IV ONE (10:06)
[2024-09-01] MEDS: POTASSIUM PHOS IN 0.9 % NACL 15 MMOL/250 ML BAG IV SCH (10:06)
[2024-09-01] MEDS: MORPHINE 2 MG/ML SYR IV PRN (11:35)
--- NOTE | 2024-09-01 15:33 | P.PN ---
Subjective Date of Service: 09/01/24 Chief Complaint: Sepsis due to UTI, generalized body weakness Subjective: No chest pain or shortness of breath. No nausea or vomiting. Has chronic abdominal pain from pancreatic cancer, now some pain in the bladder area, little better today. No obvious bleeding. Looks comfortable in the bed. Objective: General appearance: Alert and comfortable CVS: Normal S1 and S2 Lungs: Clear to auscultation bilaterally Abdomen: Soft, bowel sounds present, mild tenderness in the epigastric area, suprapubic area tenderness better today Extremities: No lower extremity edema Physical Examination - Vital Signs Temperature: 98.7 F Blood Pressure: 100/43 Pulse: 71 Respirations: 18 Pulse Ox (%): 97 Assessment And Plan - Plan (1) sepsis due to UTI. -on Ceftriaxone IV, change to zosyn due to recurrent fever - blood pressure was soft, given fluid bolus this morning, blood pressure improving after that, continue maintenance IV fluids - Unfortunately urine culture was not sent at admission, repeat UA still pending from yesterday, d/w RN this AM to send it 2. pancreatic cancer diagnosed January/2024, currently on chemotherapy in [place]. - Supportive care for now, follow-up with [facility] next week. 3. Pancytopenia: Probably related to underlying cancer and chemotherapy, follow-up with oncology. 4. Hypomagnesemia: Replaced, monitor. 5. Emphysema on CT scan: As needed inhalers for now. 6. Esophageal thickening on CT scan: Started on PPI, follow-up with PCP. 7. Generalized weakness: Secondary to underlying UTI and pancreatic cancer, CT head negative. -PT eval 8. Hypophosphatemia: Replace and monitor Plan discussed with the patient, answered all questions, discussed with nursing staff. Discharge plan depending on clinical progress.
[2024-09-01] MEDS: Ringers Lactate 500 ML IV ONE (16:04)
[2024-09-01] MEDS: SODIUM PHOSPHATE 30 MM in NA CHLORIDE 0.9% 500 ML IV ONE (16:11)
[2024-09-01 16:47] LABS: Specific Gravity 1.008 (1.005-1.030); Sqamous Epithelial <5 /HPF (None Seen); Urine Bacteria <20 /HPF (<20); Urine Bilirubin NEGATIVE (Negative); Urine Blood Trace (Negative); Urine Clarity Extremely Turbid (Clear); Urine Color Light-Yellow (Yellow); Urine Crystals Unidentified Few /HPF (None Seen); Urine Culture Reflex Order REFLEXED; Urine Glucose NEGATIVE (Negative); Urine Ketones NEGATIVE (Negative); Urine Microscopic Reflex YN ORDER UMIC; Urine Nitrite NEGATIVE (Negative); Urine Protein NEGATIVE (Negative); Urine Urobilinogen Normal (Normal); Urine WBC 20-50 /HPF (<5); Urine pH 6.5 (5.0-7.0)
[2024-09-02 06:34] LABS: Absolute Lymphocytes (CBC) 0.7 K/uL (0.7-4.9); Absolute Monocytes 0.5 K/uL (0.1-1.3); Absolute Neutrophil 1.6 K/uL (1.8-8.0); Basophils % 0.5 % (0-1.3); Eosinophils % 0.7 % (0-4.4); Hemoglobin 8.7 g/dL (12.0-15.0); Lymphocytes % 24.9 % (15.3-44.8); MCH 33.1 pg (27.0-35.0); MCHC 34.8 g/dL (32.0-36.0); MCV 95.2 fL (80-100); MPV 9.3 fL (7.6-11.3); Monocytes % 18.1 % (3.3-12.3); Neutrophils % 55.8 % (41.7-73.7); Nucleated Red Blood Cells % 0.3 % (0-0); Platelets 160 thou/uL (152-406); RBC Red Blood Cell Count 2.63 M/uL (3.86-4.86); Red Cell Distribution Width 12.9 % (12.1-15.2)
[2024-09-02 06:53] LABS: Anion Gap 9.6 mEq/L (5.0-15.0); Potassium 3.6 mEq/L (3.5-5.1)
[2024-09-02] MEDS: POTASSIUM CL SA 10 MEQ TAB PO ONE (07:36)
[2024-09-02 09:38] VITALS: O2SAT 98
--- NOTE | 2024-09-02 13:40 | P.PN ---
Date of Service: 09/02/24 Subjective Date of Service: 09/02/24 States she feels a lot better today. She denies fevers and chills. No nausea or vomiting. Her chronic abdominal pain is stable. No obvious bleeding. Looks comfortable in the bed. Physical Examination - Vital Signs Temperature: 98.7 F Blood Pressure: 100/43 Pulse: 71 Respirations: 18 Pulse Ox (%): 97 Objective: General appearance: Alert and comfortable CVS: Normal S1 and S2 Lungs: Clear to auscultation bilaterally Abdomen: Soft, bowel sounds present, mild tenderness in the epigastric area, suprapubic area tenderness better today Extremities: No lower extremity edema Assessment And Plan - Plan 1. sepsis due to UTI. - Continue Zosyn - Blood pressure improved, remained stable - Unfortunately urine culture was not sent at admission, repeat UA continues to be abnormal. 2. pancreatic cancer diagnosed January/2024, currently on chemotherapy in [facility]. - Supportive care for now, follow-up with [facility] next week. 3. Pancytopenia: Probably related to underlying cancer and chemotherapy, follow-up with oncology. 4. Hypomagnesemia: Replaced, monitor. 5. Emphysema on CT scan: As needed inhalers for now. 6. Esophageal thickening on CT scan: Started on PPI, follow-up with PCP. 7. Generalized weakness: Secondary to underlying UTI and pancreatic cancer, CT head negative. -PT eval 8. Hypophosphatemia: Replace and monitor Plan discussed with the patient, answered all questions, discussed with nursing staff. Discharge plan depending on clinical progress. DVT prophylaxis with SCDs
[2024-09-03 04:44] VITALS: BMI 17.7
[2024-09-03 07:05] LABS: Absolute Lymphocytes (CBC) 0.8 K/uL (0.7-4.9); Absolute Monocytes 0.4 K/uL (0.1-1.3); Absolute Neutrophil 1.2 K/uL (1.8-8.0); Eosinophils % 1.2 % (0-4.4); Hematocrit 25.6 % (36.0-45.0); Hemoglobin 8.7 g/dL (12.0-15.0); Lymphocytes % 31.3 % (15.3-44.8); MCH 32.4 pg (27.0-35.0); MCV 95.4 fL (80-100); MPV 8.9 fL (7.6-11.3); Monocytes % 16.7 % (3.3-12.3); Neutrophils % 49.8 % (41.7-73.7); Nucleated Red Blood Cells % 0.1 % (0-0); Platelets 218 thou/uL (152-406); RBC Red Blood Cell Count 2.68 M/uL (3.86-4.86); Red Cell Distribution Width 12.8 % (12.1-15.2)
[2024-09-03 07:20] LABS: Anion Gap 7.6 mEq/L (5.0-15.0); Potassium 3.6 mEq/L (3.5-5.1)
[2024-09-03 08:07] VITALS: TEMP 97.8
--- NOTE | 2024-09-03 10:46 | P.DS ---
Admission Date: 08/31/24 Discharge Date: 09/03/24 Disposition: ROUTINE DISCHARGE Discharge Condition: GOOD Reason for Admission: Sepsis due to UTI, generalized body weakness Hospital Course: 74-year-old female with a past medical history of pancreatic cancer diagnosed January 2024 receiving chemotherapy presented with fever and weakness found to have sepsis secondary to UTI. Upon admission she was started on IV antibiotics. Her clinical condition improved over the course of her stay. She will be transition to Augmentin for discharge. She is tolerating a diet. She will follow-up with her oncologist at [facility]. The remainder of her medical problems are chronic and stable. She is medically optimized for discharge Vital Signs/Physical Exam: Temp Pulse Resp BP Pulse Ox 97.8 F 60 18 117/55 L 96 09/03/24 08:00 09/03/24 08:00 09/03/24 08:00 09/03/24 08:00 09/03/24 08:00 General: In no apparent distress, Cachectic HEENT: Normocephalic Neck: Supple Respiratory: Normal air movement Cardiovascular: Normal pulses Capillary refill: <2 Seconds Gastrointestinal: Normal bowel sounds, Soft and benign Musculoskeletal: No clubbing Integumentary: No rashes Neurological: Normal speech, Normal strength at 5/5 x4 extr Laboratory Data at Discharge: WBC 2.40 thou/uL (4.3-10.9) L 09/03/24 06:49 Hgb 8.7 g/dL (12.0-15.0) L 09/03/24 06:49 Hct 25.6 % (36.0-45.0) L 09/03/24 06:49 Plt Count 218 thou/uL (152-406) D 09/03/24 06:49 PT 15.6 SECONDS (10-13.0) H 08/30/24 20:28 INR 1.39 08/30/24 20:28 APTT 27.7 SECONDS (27.2-37.4) 08/30/24 20:28 Sodium 142 mEq/L (136-145) D 09/03/24 06:49 Potassium 3.6 mEq/L (3.5-5.1) 09/03/24 06:49 BUN 3 mg/dL (7-18) L 09/03/24 06:49 Creatinine 0.49 mg/dL (0.55-1.02) L 09/03/24 06:49 Glucose 93 mg/dL (74-106) 09/03/24 06:49 Phosphorus 3.0 mg/dL (2.5-4.9) 09/02/24 06:18 Magnesium 2.0 mg/dL (1.6-2.4) 09/02/24 06:18 Total Bilirubin 0.4 mg/dL (0.2-1.0) 08/30/24 20:28 AST 12 U/L (15-37) L 08/30/24 20:28 ALT < 14 U/L (13-56) 08/30/24 20:28 Alkaline Phosphatase 125 U/L (45-117) H 08/30/24 20:28 Lipase Cancelled 08/30/24 21:05 Home Medications: Atorvastatin Calcium 40 mg PO BEDTIME 08/31/24 Oxycodone HCl 5 mg PO BID* PRN 08/31/24 Pantoprazole [Protonix Tab*] 25 mg PO DAILY 08/31/24 Amox/Clavulanate [Augmentin 875-125 Tab] 875 mg PO BID 7 Days #14 tab 09/03/24 New Medications: Amox/Clavulanate [Augmentin 875-125 Tab] 875 mg PO BID 7 Days #14 tab Followup: Freddy Lee MD [Primary Care Provider] -
[2024-09-03 12:09] VITALS: BP 139/65
--- NOTE | 2024-09-04 12:08 | EKG ---
Test Date: 2024-09-01 Test Time: 08:58:53 Home Health Care Case Manager: KAT MEASUREMENT RESULTS: Intervals: Rate: 65 [place]: 140 QRSD: 70 QT: 400 QTc: 416 [place]: P: 80 [place]: 140 QRS: 61 T: 88 INTERPRETIVE STATEMENTS: Normal sinus rhythm ST & T wave abnormality, consider lateral ischemia Abnormal ECG Compared to ECG 08/30/2024 20:03:10 ST (T wave) deviation now present Possible ischemia now present Myocardial infarct finding no longer present Electronically Signed On 09-04-24 12:06:05 CDT by Kaushik Maharaj
== END 2024-09-03 12:16 | disposition home or self-care (01) | DRG 871 ==
LOC: ER 19:49 → ERHOLD 08-31 00:58 → 4TH 08-31 02:55
PROVIDERS: ADMIT Family Medicine; ATTEND Family Medicine
DX: A41.9 Sepsis, unspecified organism (principal); D61.810 Antineoplastic chemotherapy induced pancytopenia; N10 Acute pyelonephritis; C25.9 Malignant neoplasm of pancreas, unspecified; R64 Cachexia; Z68.1 Body mass index [BMI] 19.9 or less, adult; R65.20 Severe sepsis without septic shock; J43.9 Emphysema, unspecified; E83.42 Hypomagnesemia; E83.39 Other disorders of phosphorus metabolism; R50.81 Fever presenting with conditions classified elsewhere; T45.1X5A Adverse effect of antineoplastic and immunosuppressive drugs, initial encounter; Z11.52 Encounter for screening for COVID-19; Z91.041 Radiographic dye allergy status; Z79.899 Other long term (current) drug therapy
CPT/HCPCS: 36415; 70450; 71045; 71250; 74176; 80048; 80076; 81001; 82947; 83605; 83690; 83735; 83880; 84100; 84484; 85025; 85610; 85730; 86140; 87040; 87086; 87088; 87428; 93005; 97116; 97161; 99285; J0692; J0696; J1171; J1650; J2270; J2405; J2543; J3370; J3475; J7030; J7040; J7050; J7120; P9047